=== PATIENT | male | born 1985 | race African-American/Black ===

== ENCOUNTER 2017-10-31 21:27 | Emergency (ER) | payer SELFPAY ==
[~2017-10-31] VITALS: Ht 177.8 cm; Wt 81.0 kg
[2017-10-31] MEDS ORDERED: AMLODIPINE 2.5MG TABLET PO ONE (22:15)
[2017-10-31 23:02] LABS: BASOPHILS % 1.2 % (0.0-2.0); EOSINOPHILS % 1.6 % (0.0-5.0); HEMATOCRIT. 39.9 % (42.0-52.0); HEMOGLOBIN. 13.6 g/dL (14.0-18.0); LYMPHOCYTES % 34.8 % (20.0-50.0); MEAN CORPUSCULAR VOLUME 84.9 fL (80.0-94.0); MEAN PLATELET VOLUME 10.2 fl (7.4-10.4); MONOCYTES % 7.5 % (2.0-8.0); NEUTROPHILS % 54.9 % (40.0-76.0); PLATELET 145 x1000/uL (130-400); RED BLOOD CELL COUNT 4.71 mill/uL (4.7-6.1); RED CELL DISTRIBUTION WIDTH 14.3 % (11.6-14.6)
[2017-10-31 23:08] LABS: CHLORIDE 108 mEq/L (98-107)
[2017-10-31 23:12] LABS: INR 1.2; PROTHROMBIN TIME 12.1 sec (9.4-11.6)
[2017-11-01] MEDS ORDERED: POTASSIUM CHLORIDE 20MEQ/PACKET PO ONE (00:15)
[2017-11-01 01:17] VITALS: BP 166/92
== END 2017-11-01 01:19 | disposition home or self-care (01) ==
LOC: ER 21:27
DX: R07.9 Chest pain, unspecified (principal); N17.9 Acute kidney failure, unspecified; I10 Essential (primary) hypertension
CPT/HCPCS: 36415; 71045; 80053; 83880; 84484; 85025; 85610; 93005; 99285; Z7610